=== PATIENT | male | born 1990 | race Hispanic/Latino ===

== ENCOUNTER → 2018-12-06 | Day surgery (SDC) | payer OTHER ==
[~2018-12-06] MED LIST: ACETAMINOPHEN 1000 MG/100 ML IV ONE; BALANCED SALT SOLN (OPTH) 15 ML BTL IO ONE; BUPIVACAINE 0.5%/EPI 30 ML SDV INJ ONE; DEXAMETHASONE SOD PHOS INJ 4 MG/ML VIAL ONE; FENTANYL CITRATE/PF 100MCG/2 ML INJ ONE; GLYCOPYRROLATE INJ 1MG/ 5 ML SYR ONE; LIDOCAINE 1% W/EPINEPHRINE 20 ML VIAL ONE; LIDOCAINE HCL 2% LOCAL INJ 5 ML SDV VIAL INJ ONE; MIDAZOLAM HCL 2 MG/2 ML VIAL ONE; NEOSTIGMINE 1 MG/ML 10ML VIAL ONE; NEOSTIGMINE 5 MG/5ML SYR ONE; ONDANSETRON HCL INJ 2MG/ML 2ML 2 MG/ML VIAL ONE; PROPOFOL IV EMULSION 10 MG/ML 20 ML VIAL ONE; ROCURONIUM BROMIDE 10 MG/ML 5ML VIAL ONE; SEVOFLURANE INHAL SOLN 250 ML PEN BTL ONE
--- NOTE | 2018-12-06 09:22 | Pre Op History & Physical ---
DATE OF SURGERY: December 06, 2018. CHIEF COMPLAINT: Recurrent tonsillitis, adenoiditis. HISTORY OF PRESENT ILLNESS: This 28-year-old male has 4 to 6 episodes of tonsillitis a year over the past few years. The patient has large snoring with no apneic episode. The patient has no daytime somnolence. The patient usually has sore throat and trouble swallowing. The patient has been treated with multiple antibiotics with no improvement. His last episode was in the winter of 2018. REVIEW OF SYSTEMS: Showed no recent cardiovascular, respiratory, or GI problem. PAST MEDICAL HISTORY: The patient has no significant medical problem. PAST SURGICAL HISTORY: The patient has no previous surgery. ALLERGIES: HE HAS NO KNOWN ALLERGY TO MEDICATION. MEDICATIONS: He is on no regular medication. SOCIAL HISTORY: He is a nonsmoker and nondrinker. FAMILY HISTORY: Noncontributory. PHYSICAL EXAMINATION: VITAL SIGNS: The patient's vital signs were within normal limits. EARS: Normal tympanic membrane bilaterally. NASAL: Show deviated nasal septum to the right side about 40%. OROPHARYNX AND ORAL CAVITY: Show 2+ tonsils on the right and 3+ on the left with Mallampati level 2. NECK: No lymph node or thyroid palpable. CHEST: Good air entry bilaterally. CARDIOVASCULAR: S1 and S2. No murmur noted. ASSESSMENT AND PLAN: Mr. Eder Arteaga has recurrent tonsillitis, adenoiditis, which have been resistant to conservative therapy. The suggested treatment is tonsillectomy, possible adenoidectomy, and other necessary procedure. The complications of procedure include, but not limited to bleeding, infection, hyponasal speech, nasal regurgitation of food, airway distress, recurrence of the sore throat. Alternatives will be continued observation, continue antibiotic therapy, topical nasal steroid therapy, systemic steroid therapy, decongestant. The patient has elected to undergo the surgical procedure. MD MARY Gilliland/RADHA /[id number]
[2018-12-06 11:35] VITALS: BP 117/69
--- NOTE | 2018-12-06 17:25 | Operative Report ---
DATE OF PROCEDURE: 12/06/2018 SURGEON: Chong Alvarado MD CHIEF COMPLAINT: Recurrent tonsillitis and lesion on tip of the nose. POSTOPERATIVE DIAGNOSES: Recurrent tonsillitis and lesion on tip of the nose. OPERATIVE PROCEDURE: Excision of tip of the nose lesion, 2 x 1 cm with appropriate closure and tonsillectomy. ANESTHESIA: Anesthesiology service. INDICATIONS: This 28-year-old male has four to six episodes of tonsillitis a year for the past few years. The patient also was noted to have a lesion on the tip of the nose, which has been increasing in size and irritating to the patient. The patient's tonsillar problem has been treated with multiple antibiotics with no improvement. On examination, he was noted to have 2 to 3+ tonsils bilaterally. They have exudate, worse on the right side. Lesion was noted on the tip of the nose about 0.5 cm paramedian to the left. It was decided that tonsillectomy and excision of nasal tip lesion with appropriate closure and other necessary procedures will be beneficial for him. DESCRIPTION OF PROCEDURE: The patient was taken to the operating room, put under general anesthesia, endotracheally intubated. Nasal lesion was addressed first. The nose was prepped and draped in a sterile fashion. Nasal area was injected with 1% Xylocaine with 1:100,000 epinephrine for hemostasis. An incision was marked out along one of the nasal subunit. The lesion was excised. Size of the defect was about 2 x 1 cm. The lesion was sent for permanent section. Closure of the area was undertaken. Any bleeding on the nose was controlled using the cautery. The superior and inferior flap was elevated in a subcutaneous plane. This was advanced and closed on itself using 5-0 Prolene suture in the interrupted fashion. The tonsillectomy was performed. The patient was put in Mackenzie position and McIvor mouth gag was inserted. The tonsillar fossas were injected with 0.5% Marcaine with 1:200,000 epinephrine. The adenoid tissue was examined and was not noted to be hypertrophied or inflamed. The right tonsil was retracted medially, a plane was created between the tonsil and tonsillar bed, dissection was carried down to the inferior pole and tonsil was _removed . Similar procedure was carried out on the contralateral side. Hemostasis in tonsillar fossas were achieved using suction cautery. Nasopharynx, oropharynx, and oral cavity were irrigated with copious amount of normal saline. The stomach was suctioned out at the end of the procedure. The patient tolerated the above procedure with estimated blood loss of about 30 mL. He was given 20 mg of Decadron intraoperatively. The patient was able to be transferred to recovery room in stable condition. MD MARY Gilliland/MODL /[id number]
== END | disposition home or self-care (01) ==
LOC: OR 07:29
PROVIDERS: ATTEND Otolaryngology Otolaryngology/Facial Plastic Surgery
DX: J35.01 Chronic tonsillitis (principal); D23.39 Other benign neoplasm of skin of other parts of face
CPT/HCPCS: 11440; 42826; 88304; 88305; J0131; J1100; J2001; J2250; J2405; J2704; J2710; J3490